=== PATIENT | male | born 1955 | race Caucasian/White ===

== ENCOUNTER 2024-08-27 09:04 | Day surgery (SDC) | payer MEDICARE ==
[~2024-08-27] VITALS: Ht 177.8 cm; Wt 117.9 kg
[2024-08-27] MEDS ORDERED: JANTOVEN5 M2 PO (09:28)
[2024-08-27] MEDS ORDERED: EZETIMIBE10 M6 PO (09:29)
[2024-08-27] MEDS ORDERED: ATOR40TA PO (09:29)
[2024-08-27] MEDS ORDERED: METF500 PO (09:30)
[2024-08-27] MEDS ORDERED: LISI5 PO (09:30)
[2024-08-27] MEDS ORDERED: SOLIQUA 100 UNIT3 M1 (09:30)
[2024-08-27] MEDS ORDERED: METO50ER PO (09:31)
[2024-08-27] MEDS ORDERED: NITROGLYCERIN0.4 M3 SL (09:31)
[2024-08-27] MEDS ORDERED: ASPI81CH PO (09:31)
[2024-08-27] MEDS ORDERED: FentaNYL Citrate 50 MCG/ML 2 ML Injection ONE (10:26)
[2024-08-27] MEDS ORDERED: Midazolam HCl 1MG / ML 2ML Vial ONE ×2 (10:26→11:14)
[2024-08-27] MEDS ORDERED: CeFAZolin Sodium 1000 mg Vial ONE (10:26)
[2024-08-27] MEDS ORDERED: Heparin Sodium 1000 Units/ML 10ML MDV ONE (10:27)
[2024-08-27] MEDS ORDERED: NS 1,000 ML IV ONE ×2 (10:27)
[2024-08-27] MEDS ORDERED: CeFAZolin Sodium 2,000 MG VIAL ONE (10:41)
[2024-08-27] MEDS ORDERED: NS 100 ML IV ONE (10:44)
[2024-08-27 12:45] VITALS: BP 160/76
--- NOTE | 2024-08-27 12:45 | NUR ---
ASSUMED CARE OF PT POST PROCEDURE. PT DROWSY, BUT CONVERSING APPROPRIATELY; DENIES PAIN POST PROCEDURE. MONITOR SR 60'S, B/P 160/76, SPO2 98% RA. L CHEST PACEMAKER SITE NO SWELLING/HEMATOMA, TELFA AND TEGADERM DRSG INTACT; ICE PACK IN PLACE.
[2024-08-27 13:00] VITALS: BP 130/76
[2024-08-27 13:15] VITALS: BP 148/78
[2024-08-27 13:30] VITALS: BP 152/80
--- NOTE | 2024-08-27 13:30 | NUR ---
PT TO IMAGING FOR POST CXR.
--- NOTE | 2024-08-27 13:43 | NUR ---
PT RETURNED FROM IMAGING.
[2024-08-27 13:45] VITALS: BP 154/78
[2024-08-27 14:00] VITALS: BP 130/74
--- NOTE | 2024-08-27 14:05 | NUR ---
DR VO IN TO DISCUSS RESULTS OF PROCEDURE WITH PT AND .
--- NOTE | 2024-08-27 14:30 | NUR ---
PT DRESSED SELF WITHOUT ISSUE, SITE UNCHANGED; IV REMOVED-CANNULA INTACT.
--- NOTE | 2024-08-27 14:39 | NUR ---
PT AND RECEIVED DISCHARGE INSTRUCTIONS, MED LIST AND AFTER CARE INSTRUCTIONS; VERBALIZED GOOD UNDERSTANDING. PT LEFT FACILITY VIA W/C, CONDITION STABLE.
== END 2024-08-27 14:39 | disposition home or self-care (01) ==
LOC: MHTC 09:04
DX: I48.0 Paroxysmal atrial fibrillation (principal); I45.5 Other specified heart block; I25.10 Atherosclerotic heart disease of native coronary artery without angina pectoris; E11.9 Type 2 diabetes mellitus without complications; G47.33 Obstructive sleep apnea (adult) (pediatric); Z79.899 Other long term (current) drug therapy; Z79.01 Long term (current) use of anticoagulants
CPT/HCPCS: 33208; 36415; 71046; 76937; 80048; 85025; 85610; 99152; 99153; C1785; C1894; C1898; J0690; J1644; J2250; J3010; J7030; J7040; Q9967